=== PATIENT | female | born 1950 | race African-American/Black ===

== ENCOUNTER → 2016-10-28 | Outpatient (CLI) | payer MEDICARE | LOC: OD 17:11 | PROVIDERS: ATTEND Physician Assistant | DX: M25.532 Pain in left wrist (principal) ==

== ENCOUNTER → 2016-11-01 | Outpatient (CLI) | payer MEDICARE | LOC: OD 15:44 | PROVIDERS: ATTEND Physician Assistant | DX: M25.512 Pain in left shoulder (principal) ==

== ENCOUNTER → 2017-02-09 | Outpatient (CLI) | payer MEDICARE ==
--- NOTE | 2017-02-09 16:37 | RADIOLOGY REPORT (SQ) ---
EXAM DESCRIPTION: WRIST BILATERAL 3 VIEWS COMPLETED DATE/TIME: 02/09/2017 4:21 pm REASON FOR STUDY: PAIN IN RIGHT WRIST,PAIN IN LEFT WRIST M25.531 PAIN IN RIGHT WRIST M25.532 PAIN IN LEFT WRIST M25.541 PAIN IN JOINTS OF RIGHT HAND COMPARISON: None. NUMBER OF VIEWS: Three views. TECHNIQUE: AP, lateral, and oblique radiographic images acquired of the right and left wrist. LIMITATIONS: None. FINDINGS: MINERALIZATION: Normal. BONES: No acute fracture or dislocation. There is a cyst in the trapezium on the left SOFT TISSUES: No soft tissue swelling. No foreign body. OTHER: No other significant finding. IMPRESSION: No acute abnormality. There is is cyst in the left trapezium. TECHNICAL DOCUMENTATION: JOB ID: [id number] [employer]- All Rights Reserved
--- NOTE | 2017-02-09 16:41 | RADIOLOGY REPORT (SQ) ---
EXAM DESCRIPTION: HAND BILATERAL 3 VIEWS COMPLETED DATE/TIME: 02/09/2017 4:21 pm REASON FOR STUDY: PAIN IN RIGHT HAND,PAIN IN LEFT HAND M25.531 PAIN IN RIGHT WRIST M25.532 PAIN IN LEFT WRIST M25.541 PAIN IN JOINTS OF RIGHT HAND COMPARISON: None. EXAM PARAMETERS: NUMBER OF VIEWS: Three views right hand. Three views left hand. TECHNIQUE: AP, lateral and oblique radiographic images acquired of bilateral hands. LIMITATIONS: None. FINDINGS: RIGHT HAND: MINERALIZATION: Normal. BONES: No acute fracture or dislocation. No worrisome bone lesions. No significant osteophytes. JOINTS: There is mild juxta-articular osteopenia. Degenerative joint changes are present in the 2nd distal interphalangeal joint. Milder changes are present in the 1st proximal interphalangeal joint. SOFT TISSUES: No swelling. No calcifications. OTHER: No other significant finding. LEFT HAND: MINERALIZATION: Normal. BONES: No acute fracture or dislocation. No worrisome bone lesions. No significant osteophytes. JOINTS: There is mild juxta-articular osteopenia. Mild degenerative joint changes are seen in the 2n d and 3rd distal interphalangeal joints. SOFT TISSUES: No swelling. No calcifications. OTHER: No other significant finding. IMPRESSION: Degenerative joint changes as described. There is no acute abnormality. TECHNICAL DOCUMENTATION: JOB ID: [id number]- All Rights Reserved
== END ==
LOC: OD 15:56
PROVIDERS: ATTEND Physician Assistant
DX: M25.531 Pain in right wrist (principal); M25.532 Pain in left wrist; M25.541 Pain in joints of right hand; M25.542 Pain in joints of left hand

== ENCOUNTER → 2017-02-15 | Outpatient (CLI) | payer MEDICARE ==
--- NOTE | 2017-02-15 10:59 | RADIOLOGY REPORT (SQ) ---
EXAM DESCRIPTION: MRI RT UPPER JOINT WITHOUT COMPLETED DATE/TIME: 02/15/2017 9:00 am REASON FOR STUDY: RIGHT SHOULDER PAIN (M25.511) M25.511 PAIN IN RIGHT SHOULDER COMPARISON: None. TECHNIQUE: Right shoulder images acquired and stored on PACS. Multiplanar imaging to include fat sen sitive sequences such as T1, water sensitive sequences such as FST2/STIR, cartilage sensitive sequenc es such as FSPD/gradient-echo sequences. LIMITATIONS: None. FINDINGS: BONE MARROW AND CORTEX: No worrisome bone lesions or marrow replacement. No occult fractur es. JOINT OR BURSAL EFFUSION: No significant joint or bursal fluid. No suggestion of loose bodies. GLENO-HUMERAL ARTICULATION: Normal articulation. No subluxation. No cystic change. No osteophytes or cartilage loss. ACROMION AND AC JOINT: Type 2. Mild AC joint arthropathy. ROTATOR CUFF AND INTERVAL: Small rim rent tear of the supraspinatus. Intermediate signal along the b ursal surface. No full-thickness tear. No rotator interval tear. No rotator interval thickening to suggest adhesive capsulitis. LABRUM AND BICEPS LABRAL COMPLEX: Increased signal follows the contour of the superior glenoid most consistent with a normal variant. No definite labral tear is identified. Extra-articular biceps in tact. REMAINDER OF LABRUM AND IGHL : No gross tear or paralabral cyst formation. Labral evaluation is less than optimal without joint distention. No thickening of IGHL to suggest adhesive capsulitis. PERIARTICULAR AND ADJACENT SOFT TISSUES: No masses or abnormal nodes. OTHER: No other significant finding. IMPRESSION: Small rim rent tear and bursal surface perforation of the supraspinatus. No full-thickn ess tear. TECHNICAL DOCUMENTATION: JOB ID: [id number] [employer]- All Rights Reserved
== END ==
LOC: RAD 08:02
PROVIDERS: ATTEND Physician Assistant
DX: M25.511 Pain in right shoulder (principal)

== ENCOUNTER 2017-02-18 09:07 | Emergency (ER) | payer MEDICARE ==
[2017-02-18] MEDS ORDERED: HYDROCODONE/ACETAMINOPHEN 5-325 MG TABLET PO ONE (09:52)
--- NOTE | 2017-02-18 10:03 | ER Document Report ---
HPI - HPI Patient complains to provider of: left wrist pain Onset: Other - 02/06/2017 Onset/Duration: Worse Quality of pain: Sharp Pain Level: 5 Context: Patient reports she has had wrist pain since February 06. Patient denies any injury. Patient did see her primary doctor regarding this and had x-rays performed on 02/09/2017. Patient states that the x-ray showed arthritis and a cyst to her wrist area. Patient denies any fever. Patient complains of increased pain and swelling. Associated Symptoms: Other - Wrist pain. denies: Fever Exacerbated by: Movement Relieved by: Denies Similar symptoms previously: Yes Recently seen / treated by doctor: Yes - ROS ROS below otherwise negative: Yes Systems Reviewed and Negative: Yes All other systems reviewed and negative - CONSTITUTIONAL Constitutional: DENIES: Fever, Chills - NEURO Neurology: DENIES: Weakness - CARDIOVASCULAR Cardiovascular: DENIES: Chest pain - MUSCULOSKELETAL Musculoskeletal: REPORTS: Extremity pain, Swelling. DENIES: Back Pain - DERM Skin Color: Normal Past Medical History - General Information source: Patient - Social History Smoking Status: Never Smoker Chew tobacco use (# tins/day): No Frequency of alcohol use: None Drug Abuse: None Occupation: none Family History: Reviewed & Not Pertinent Patient has suicidal ideation: No Patient has homicidal ideation: No - Past Medical History Cardiac Medical History: Reports: Hx Coronary Artery Disease, Hx Hypertension Denies: Hx Heart Attack Pulmonary Medical History: Reports: Hx COPD - COPD, SARCOIDOSIS Denies: Hx Asthma, Hx Bronchitis, Hx Pneumonia, Hx Tuberculosis Neurological Medical History: Denies: Hx Cerebrovascular Accident, Hx Seizures Renal/ Medical History: Denies: Hx Peritoneal Dialysis GI Medical History: Reports: Hx Gastroesophageal Reflux Disease Musculoskeltal Medical History: Reports Hx Arthritis, Denies Hx Gout Past Surgical History: Reports: Hx Section - 3XS, Hx Cholecystectomy, Hx Mastectomy - BILATERAL, Hx Tonsillectomy. Denies: Hx Pacemaker - Immunizations Hx Diphtheria, Pertussis, Tetanus Vaccination: No Hx Pneumococcal Vaccination: 06/28/07 Vertical Provider Document - CONSTITUTIONAL Agree With Documented VS: Yes Exam Limitations: No Limitations General Appearance: WD/WN, No Apparent Distress - INFECTION CONTROL TRAVEL OUTSIDE OF THE [place] IN LAST 30 DAYS: No - HEENT HEENT: Atraumatic, Normocephalic - NECK Neck: Normal Inspection, Supple - RESPIRATORY Respiratory: Breath Sounds Normal, No Respiratory Distress O2 Sat by Pulse Oximetry: 97 - CARDIOVASCULAR Cardiovascular: Regular Rate, Regular Rhythm, No Murmur Pulses: Normal: Radial - MUSCULOSKELETAL/EXTREMETIES Musculoskeletal/Extremeties: Tender - left wrist tenderness increases with flexion or extension. Patient only comfortable in the neutral position. Patient with 2+ edema and faint erythema overlying the dorsal left wrist, Edema. negative: Eccymosis - NEURO Level of Consciousness: Awake, Alert, Appropriate Motor/Sensory: No Motor Deficit - DERM Integumentary: Warm, Dry Course - Re-evaluation Re-evalutation: 02/18/17 10:[address] laguerre regarding pt presentation and diagnostic evaluation 02/18/17 11:[address] laguerre, reviewed pt's diagnostic tests and ultrasound report, advises placing patient in a thumb spica splint adding nsaid and having pt return tomorrow for a recheck, sooner for any new or worsening symptoms. Exit patient's mild erythema is more inflammatory versus infective, although advises that a course of antibiotics could be added as well just as a precaution. Agrees with plan for clindamycin given pt's hx of drug allergies. 02/18/17 12:00 discussed Worsening signs or symptoms that patient should return immediately for. Patient verbalized understanding and agrees with plan of care. 02/18/17 12:06 suspect pt with inflammatory tenosynovitis with her known hx of arthritis. Pt states pain improved after placement of splint - Vital Signs Vital signs: Temp Pulse Resp BP Pulse Ox 98.4 F 66 15 191/90 H 97 02/18/17 09:10 02/18/17 09:10 02/18/17 09:10 02/18/17 09:10 02/18/17 09:10 - Laboratory Result Diagrams: 02/18/17 10:04 - Diagnostic Test Radiology reviewed: Reports reviewed - reviewed pt outpt x ray report of wrist from 02/09/17 Procedures - Immobilization Left Wrist Pre-Proc Neuro Vasc Exam: Normal Immobilizer type: Thumb spica Performed by: PCT Post-Proc Neuro Vasc Exam: Normal Alignment checked and good: Yes Discharge - Discharge Clinical Impression: Wrist pain, left, Tenosynovitis, Hx of essential hypertension Condition: Stable Disposition: HOME, SELF-CARE Instructions: Tendonitis ([facility]), Clindamycin ([facility]), Anti-Inflammatory Medication ([facility]), Temporary Splint ([facility]) Additional Instructions: return tomorrow for a recheck, return sooner for any new or worsening symptoms follow up with your doctor on Tuesday for recheck. Your blood pressure was elevated today, they may need to adjust her medications. Follow up with orthopedic doctor for further evaluation, call Tuesday for an appointment take tramadol or hydrocodone, do not take both medications together Prescriptions: Clindamycin HCl [Cleocin Hcl] 300 mg PO QID #28 capsule Hydrocodone/Acetaminophen [[place] 5-325 Tablet] 1 each PO Q6 PRN #20 tablet PRN Reason: Naproxen [Naprosyn 250 Nmg Tablet] 1 tab PO BID #14 tablet Referrals: BACILIO GOYAL MD [Primary Care Provider] - 02/21/17 [facility] [Provider Group] - 02/21/17
[2017-02-18 10:17] LABS: ABSOLUTE EOSINOPHILS # (AUTO) 0.1 10^3/uL (0.0-0.6); ABSOLUTE LYMPHOCYTES (AUTO) 2.2 10^3/uL (0.5-4.7); ABSOLUTE MONOCYTES (AUTO) 0.6 10^3/uL (0.1-1.4); ABSOLUTE NEUT (AUTO) 6.4 10^3/uL (1.7-8.2); BASOPHILS % (AUTO) 0.3 % (0-2); EOSINOPHILS % (AUTO) 1.3 % (0-6); HEMATOCRIT 37.1 % (36.0-47.0); HEMOGLOBIN 12.4 g/dL (12.0-15.5); HGB HCT DIFFERENCE 0.1; LYMPHOCYTES % (AUTO) 23.6 % (13-45); MEAN CORPUSCULAR HEMOGLOBIN 31.3 pg (27.0-33.4); MEAN CORPUSCULAR HGB CONC 33.5 g/dL (32.0-36.0); MEAN CORPUSCULAR VOLUME 93 fl (80-97); MONOCYTES % (AUTO) 6.6 % (3-13); RED BLOOD COUNT 3.97 10^6/uL (3.72-5.28); RED CELL DISTRIBUTION WIDTH 13.3 % (11.5-14.0); SEGMENTED NEUTROPHILS % (AUTO) 68.2 % (42-78); WHITE BLOOD COUNT 9.3 10^3/uL (4.0-10.5)
[2017-02-18 10:40] LABS: C-REACTIVE PROTEIN 17.4 mg/L (<10.0); URIC ACID 3.4 mg/dL (2.5-7.5)
[2017-02-18 10:57] LABS: ERYTHROCYTE SEDIMENTATION RATE 37 mm/hr (0-30)
--- NOTE | 2017-02-18 11:28 | RADIOLOGY REPORT (SQ) ---
EXAM DESCRIPTION: U/S EXTREMITY NONVASCULAR LTD COMPLETED DATE/TIME: 02/18/2017 10:50 am REASON FOR STUDY: left wrist pain/swelling, redness COMPARISON: None. TECHNIQUE: Dynamic and static grayscale images acquired of the localized site of clinical concern an d recorded on PACS. Additional selected color Doppler and spectral images recorded. SITE OF CONCERN: Left wrist LIMITATIONS: None. FINDINGS: SKIN AND SUBCUTANEOUS TISSUES: Fluid surrounding the 1st extensor tendon compartment. DEEP SOFT TISSUES/MUSCLES: No masses. No fluid collections. No edema. VASCULAR: No increased or decreased vascularity. No occlusions. OTHER: No other significant finding. IMPRESSION: Tenosynovitis 1st extensor tendon compartment. TECHNICAL DOCUMENTATION: JOB ID: [id number] [employer]- All Rights Reserved
[2017-02-18] MEDS ORDERED: NAPROXEN 250 MG TABLET PO ONE (11:57)
[2017-02-18] MEDS ORDERED: CLINDAMYCIN HCL 150 MG CAPSULE PO ONE (11:57)
[2017-02-18 12:38] VITALS: BP 170/73
== END 2017-02-18 12:40 | disposition home or self-care (01) ==
LOC: ER 09:07
PROC: 2W3DX1Z Immobilization of Left Lower Arm using Splint (ICD-10-PCS; principal; 2017-02-18)
DX: M65.9 Synovitis and tenosynovitis, unspecified (principal); M25.532 Pain in left wrist; M79.89 Other specified soft tissue disorders; I10 Essential (primary) hypertension
CPT/HCPCS: 99284; 36415; 87040; 84550; 85025; 85652; 86140; 76882; 29125; A9270 ×3

== ENCOUNTER 2017-02-19 09:12 | Emergency (ER) | payer MEDICARE ==
[2017-02-19] MEDS ORDERED: HYDROCODONE/ACETAMINOPHEN 5-325 MG TABLET PO ONE (09:39)
[2017-02-19] MEDS ORDERED: NAPROXEN 250 MG TABLET PO ONE (10:15)
[2017-02-19] MEDS ORDERED: PREDNISONE 20 MG TABLET PO ONE (10:15)
--- NOTE | 2017-02-19 10:19 | ER Document Report ---
HPI - HPI Patient complains to provider of: Recheck of left wrist Onset: Other - 4 days Onset/Duration: Better Quality of pain: Achy, Sharp Pain Level: 4 Context: Patient is here for a recheck of left wrist pain for which she was seen yesterday. Patient was diagnosed with arthritis as well as extensor tenosynovitis. Patient states that pain is modestly improved. Patient denies any fever. Patient denies any increase in swelling. Pt denies any history of trauma or puncture wound. Associated Symptoms: Other - left wrist Pain. denies: Fever Exacerbated by: Movement Relieved by: Denies Similar symptoms previously: No Recently seen / treated by doctor: Yes - ROS ROS below otherwise negative: Yes Systems Reviewed and Negative: Yes All other systems reviewed and negative - CONSTITUTIONAL Constitutional: DENIES: Fever, Chills - CARDIOVASCULAR Cardiovascular: DENIES: Chest pain - RESPIRATORY Respiratory: DENIES: Coughing - MUSCULOSKELETAL Musculoskeletal: REPORTS: Extremity pain - left wrist, Swelling - DERM Skin Color: Normal Skin Problems: None Past Medical History - General Information source: Patient - Social History Smoking Status: Never Smoker Frequency of alcohol use: None Drug Abuse: None Family History: Reviewed & Not Pertinent Patient has suicidal ideation: No Patient has homicidal ideation: No - Past Medical History Cardiac Medical History: Reports: Hx Coronary Artery Disease, Hx Hypertension Denies: Hx Heart Attack Pulmonary Medical History: Reports: Hx COPD - COPD, SARCOIDOSIS Denies: Hx Asthma, Hx Bronchitis, Hx Pneumonia, Hx Tuberculosis Neurological Medical History: Denies: Hx Cerebrovascular Accident, Hx Seizures Renal/ Medical History: Denies: Hx Peritoneal Dialysis GI Medical History: Reports: Hx Gastroesophageal Reflux Disease Musculoskeltal Medical History: Reports Hx Arthritis, Denies Hx Gout Past Surgical History: Reports: Hx Section - 3XS, Hx Cholecystectomy, Hx Mastectomy - BILATERAL, Hx Tonsillectomy. Denies: Hx Pacemaker - Immunizations Hx Diphtheria, Pertussis, Tetanus Vaccination: No Hx Pneumococcal Vaccination: 06/28/07 Vertical Provider Document - CONSTITUTIONAL Agree With Documented VS: Yes Exam Limitations: No Limitations General Appearance: WD/WN, No Apparent Distress - INFECTION CONTROL TRAVEL OUTSIDE OF THE [place] IN LAST 30 DAYS: No - HEENT HEENT: Atraumatic, Normocephalic - NECK Neck: Normal Inspection, Supple - RESPIRATORY Respiratory: Breath Sounds Normal, No Respiratory Distress O2 Sat by Pulse Oximetry: 97 - CARDIOVASCULAR Cardiovascular: Regular Rate, Regular Rhythm Pulses: Normal: Radial - MUSCULOSKELETAL/EXTREMETIES Musculoskeletal/Extremeties: Tender - Pt with generalized left wrist tenderness with 1+ edema. Faint erythema overlying the dorsal aspect of right wrist overlying trapezium and proximal 2,3 rd metacarpals. Pt with decreased swelling as compared to prior visit yesterday, erythema modestly improved. Normal skin temperature. Pain markedly increases with extension of wrist, patient with increased range of motion with left wrist flexion as compared to extension. no erythema noted to the volar aspect of the left wrist. - NEURO Level of Consciousness: Awake, Alert, Appropriate Motor/Sensory: No Motor Deficit, No Sensory Deficit - DERM Integumentary: Warm, Dry Course - Re-evaluation Re-evalutation: 02/19/17 10:[address] Lazaro who recommends consultation with orthopedic doctor. Consulted with Dr. Farr at [facility], as patient's laboratory tests, x-ray findings as well as ultrasound report. Dr. Farr agrees with plan for anti-inflammatory as well as immobilization. Does recommend placing patient on a course of steroids. Advises having patient keep appointment with on Tuesday for recheck. 02/19/17 10:19 The patient has been informed that they may have pre-hypertension or hypertension based on a blood pressure reading in the emergency department. I recommend that patient call the primary care provider listed on their discharge instructions or a physician of their choice by this week to arrange follow-up for further evaluation of possible pre-hypertension her hypertension. - Vital Signs Vital signs: Temp Pulse Resp BP Pulse Ox 98.3 F 65 16 190/88 H 97 02/19/17 09:21 02/19/17 09:21 02/19/17 09:21 02/19/17 09:21 02/19/17 09:21 - Laboratory Laboratory results interpreted by me: 02/19/17 10:16 reviewed labs from previous ER visit - Diagnostic Test Radiology reviewed: Reports reviewed Procedures - Immobilization Left Wrist Pre-Proc Neuro Vasc Exam: Normal Immobilizer type: Thumb spica Performed by: PCT Post-Proc Neuro Vasc Exam: Normal Alignment checked and good: Yes Discharge - Discharge Clinical Impression: Tenosynovitis, Wrist pain, left, Wrist arthritis, Hx of essential hypertension Condition: Stable Disposition: HOME, SELF-CARE Instructions: Arthritis ([facility]), Steroid Medication, Anti-Inflammatory Medication ([facility]), Temporary Splint ([facility]) Additional Instructions: Follow-up with Jennifer at [facility] on Tuesday for a recheck return for worsening symptoms, increased pain, fever, or any other concerns. Continue to take your anti-inflammatory medication and pain medication as prescribed. Your blood pressure was elevated today, recheck with your primary doctor on Tuesday for a recheck to have this reevaluated Prescriptions: Prednisone [Deltasone 20 mg Tablet] 2 tab PO DAILY 4 Days Forms: Elevated Blood Pressure Referrals: BACILIO GOYAL MD [Primary Care Provider] - 02/21/17 [facility] [Provider Group] - 02/21/17
[2017-02-19 10:33] VITALS: BP 174/86
== END 2017-02-19 10:33 | disposition home or self-care (01) ==
LOC: ER 09:12
DX: M25.532 Pain in left wrist (principal); M65.9 Synovitis and tenosynovitis, unspecified; M19.032 Primary osteoarthritis, left wrist; I10 Essential (primary) hypertension
CPT/HCPCS: 99283; A9270 ×3; J7512

== ENCOUNTER → 2017-11-04 | Outpatient (CLI) | payer MEDICARE ==
--- NOTE | 2017-11-04 12:36 | RADIOLOGY REPORT (SQ) ---
EXAM DESCRIPTION: CHEST PA/LATERAL COMPLETED DATE/TIME: 11/04/2017 11:55 am REASON FOR STUDY: COUGH COMPARISON: 10/16/2015 EXAM PARAMETERS: NUMBER OF VIEWS: two views TECHNIQUE: Digital Frontal and Lateral radiographic views of the chest acquired. RADIATION DOSE: NA LIMITATIONS: none FINDINGS: LUNGS AND PLEURA: Chronic interstitial changes. Subtle increased density lateral to the r ight heart border. Nodular density substernal inferiorly seen on lateral view only. MEDIASTINUM AND HILAR STRUCTURES: No masses or contour abnormalities. HEART AND VASCULAR STRUCTURES: Stable heart size. BONES: No acute findings. HARDWARE: None in the chest. OTHER: No other significant finding. IMPRESSION: Atelectasis or early pneumonia in the middle lobe. Questionable inferior substernal nod ule. TECHNICAL DOCUMENTATION: JOB ID: [id number] [employer]- All Rights Reserved
== END ==
LOC: OD 11:42
PROVIDERS: ATTEND Family Medicine
DX: R05 Cough (principal)
CPT/HCPCS: 71046

== ENCOUNTER → 2017-11-11 | Outpatient (CLI) | payer MEDICARE ==
--- NOTE | 2017-11-11 13:01 | RADIOLOGY REPORT (SQ) ---
EXAM DESCRIPTION: CHEST PA/LATERAL COMPLETED DATE/TIME: 11/11/2017 12:46 pm REASON FOR STUDY: PNEUMONIA, UNSPECIFIED ORGANISM COMPARISON: Two-view chest 11/04/2017 CT chest 12/03/2015 EXAM PARAMETERS: NUMBER OF VIEWS: two views TECHNIQUE: Digital Frontal and Lateral radiographic views of the chest acquired. RADIATION DOSE: NA LIMITATIONS: none FINDINGS: LUNGS AND PLEURA: No opacities, masses or pneumothorax. No pleural effusion. MEDIASTINUM AND HILAR STRUCTURES: No masses or contour abnormalities. HEART AND VASCULAR STRUCTURES: Mild cardiomegaly BONES: Osteoporotic without thoracic compression deformity HARDWARE: None in the chest. OTHER: No other significant finding. IMPRESSION: No focal infiltrates. Mild cardiomegaly TECHNICAL DOCUMENTATION: JOB ID: [id number] [employer]- All Rights Reserved Reading location - IP/workstation name: [email or web address]
== END ==
LOC: OD 12:01
PROVIDERS: ATTEND Family Medicine
DX: J18.9 Pneumonia, unspecified organism (principal)
CPT/HCPCS: 71046

== ENCOUNTER → 2018-02-17 | Outpatient (CLI) | payer MEDICARE ==
[2018-02-21 13:38] LABS: CALCIUM RANDOM URINE 1.1 mg/dL (Not Estab.)
[2018-02-21 13:50] LABS: CALCIUM URINE 24HR 14.1 mg/24 hr (100.0-300.)
== END ==
LOC: LAB 12:36
PROVIDERS: ATTEND Internal Medicine Pulmonary Disease
DX: D86.9 Sarcoidosis, unspecified (principal)
CPT/HCPCS: 36415; 82310; 82340; 85652

== ENCOUNTER → 2018-05-11 | Outpatient (CLI) | payer MEDICARE ==
--- NOTE | 2018-05-11 10:43 | RADIOLOGY REPORT (SQ) ---
EXAM DESCRIPTION: MRI LT LOWER JOINT WITHOUT COMPLETED DATE/TIME: 05/11/2018 10:24 am REASON FOR STUDY: INTERNAL DERANGEMENT OF LEFT KNEE M23.92 UNSPECIFIED INTERNAL DERANGEMENT OF LEFT KNEE COMPARISON: None. TECHNIQUE: Leftknee images acquired and stored on PACS. Multiplanar images include fat sensitive se quences as T1, water sensitive sequences as FST2 or STIR, cartilage sensitive sequences as FSPD, and gradient echo sequences. LIMITATIONS: None. FINDINGS: JOINT AND BURSAE: No effusion. BONE CORTEX AND MARROW: No alteration of signal to suggest marrow replacement. No worrisome bone lesi ons. No occult fracture. ACL: Intact. No degeneration or ganglion cyst. PCL: Intact. MCL: Intact. No periligamentous edema or fluid. LCL: Intact. No periligamentous edema or fluid. MEDIAL MENISCUS: Increased signal posterior horn extending to the articular surface in the horizontal plane. LATERAL MENISCUS: Increased signal anterior horn without extension to the articular surface. MEDIAL COMPARTMENT: Cartilage thinning. No large osteophytes or subchondral edema. LATERAL COMPARTMENT: Cartilage thinning. Subchondral cyst formation tibial plateau. PATELLA: Cartilage thinning. Lateral tilting of the patella. Intact retinaculum. EXTENSOR MECHANISM: Intact. Quadriceps and patella tendons normal. SOFT TISSUES: Subcutaneous edema anterior to the patellar tendon. No bursal fluid collection. OTHER: No other significant finding. IMPRESSION: 1. Horizontal tear posterior horn medial meniscus. 2. Chondromalacia. Subchondral cyst lateral tibial plateau. TECHNICAL DOCUMENTATION: JOB ID: [id number] [employer]- All Rights Reserved Reading location - IP/workstation name: [email or web address]
== END ==
LOC: RAD 09:33
PROVIDERS: ATTEND Physician Assistant
DX: M23.92 Unspecified internal derangement of left knee (principal)

== ENCOUNTER → 2018-05-26 | Outpatient (CLI) | payer MEDICARE ==
[2018-05-26 15:17] LABS: ABSOLUTE EOSINOPHILS # (AUTO) 0.1 10^3/uL (0.0-0.6); ABSOLUTE LYMPHOCYTES (AUTO) 2.5 10^3/uL (0.5-4.7); ABSOLUTE MONOCYTES (AUTO) 0.5 10^3/uL (0.1-1.4); ABSOLUTE NEUT (AUTO) 6.6 10^3/uL (1.7-8.2); BASOPHILS % (AUTO) 0.3 % (0-2); EOSINOPHILS % (AUTO) 1.4 % (0-6); HEMATOCRIT 34.7 % (36.0-47.0); HEMOGLOBIN 11.8 g/dL (12.0-15.5); LYMPHOCYTES % (AUTO) 25.3 % (13-45); MEAN CORPUSCULAR HEMOGLOBIN 32.2 pg (27.0-33.4); MEAN CORPUSCULAR HGB CONC 33.9 g/dL (32.0-36.0); MEAN CORPUSCULAR VOLUME 95 fl (80-97); MONOCYTES % (AUTO) 5.5 % (3-13); PLATELET COUNT 242 10^3/uL (150-450); RED BLOOD COUNT 3.66 10^6/uL (3.72-5.28); SEGMENTED NEUTROPHILS % (AUTO) 67.5 % (42-78); TOTAL CELLS COUNTED % (AUTO) 100 %; WHITE BLOOD COUNT 9.8 10^3/uL (4.0-10.5)
[2018-05-26 15:36] LABS: ALANINE AMINOTRANSFERASE 20 U/L (9-52); ALBUMIN 4.1 g/dL (3.5-5.0); ALKALINE PHOSPHATASE 60 U/L (38-126); ANION GAP 9 (5-19); ASPARTATE AMINO TRANSFERASE 16 U/L (14-36); BILIRUBIN,DIRECT 0.5 mg/dL (0.0-0.4); BILIRUBIN,TOTAL 0.6 mg/dL (0.2-1.3); BLOOD UREA NITROGEN 21 mg/dL (7-20); CALCIUM 10.2 mg/dL (8.4-10.2); CARBON DIOXIDE 30 mmol/L (22-30); CHLORIDE 102 mmol/L (98-107); GLUCOSE 104 mg/dL (75-110); POTASSIUM 3.8 mmol/L (3.6-5.0); SODIUM 141.4 mmol/L (137-145); TOTAL PROTEIN 6.7 g/dL (6.3-8.2)
--- NOTE | 2018-05-26 19:17 | EKG REPORT ---
SEVERITY:- ABNORMAL ECG - SINUS RHYTHM SINUS PAUSE/ARREST WITH ATRIAL ESCAPE RIGHT BUNDLE BRANCH BLOCK : Confirmed by: Landen Dave MD 26-May-2018 19:16:32
== END ==
LOC: OD 14:23
PROVIDERS: ATTEND Orthopaedic Surgery
DX: I10 Essential (primary) hypertension (principal); Z11.2 Encounter for screening for other bacterial diseases
CPT/HCPCS: 36415; 80053; 85025; 87070; 93005; 93010

== ENCOUNTER → 2018-12-22 | Outpatient (CLI) | payer MEDICARE ==
--- NOTE | 2018-12-22 11:45 | RADIOLOGY REPORT (SQ) ---
EXAM DESCRIPTION: HIPS BILATERAL COMPLETED DATE/TIME: 12/22/2018 11:23 am REASON FOR STUDY: PAIN IN RT/LT HIP M25.551 PAIN IN RIGHT HIP M25.552 PAIN IN LEFT HIP COMPARISON: None. NUMBER OF VIEWS: Two views TECHNIQUE: AP pelvis and additional frog-leg view of both hips. LIMITATIONS: None. FINDINGS: MINERALIZATION: Normal. HIPS: Mild joint space narrowing bilaterally. This is symmetric. No acute fracture or dislocation. PELVIS AND SACRUM: No acute fracture or dislocation. No worrisome bone lesions. PUBIS AND ISCHIUM: No acute fracture. LOWER LUMBAR SPINE: No significant findings as visualized. SOFT TISSUES: No findings. OTHER: No other significant finding. IMPRESSION: Mild symmetric degenerative changes in the hips. No acute findings. TECHNICAL DOCUMENTATION: JOB ID: [id number] [employer]- All Rights Reserved Reading location - IP/workstation name: [email or web address]
== END ==
LOC: OD 11:12
PROVIDERS: ATTEND Physician Assistant
DX: M25.551 Pain in right hip (principal); M25.552 Pain in left hip
CPT/HCPCS: 73522

== ENCOUNTER → 2019-04-10 | Outpatient (CLI) | payer MEDICARE, OTHER ==
--- NOTE | 2019-04-10 08:19 | RADIOLOGY REPORT (SQ) ---
EXAM DESCRIPTION: U/S RETROPERITON (RENAL/AORTA) COMPLETED DATE/TIME: 04/10/2019 7:48 am REASON FOR STUDY: CYST OF KIDNEY, ACQUIRED (N28.1) N28.1 CYST OF KIDNEY, ACQUIRED COMPARISON: None. TECHNIQUE: Dynamic and static grayscale images acquired of the kidneys and bladder and recorded on P ACS. Additional selected color Doppler and spectral images recorded. LIMITATIONS: None. FINDINGS: RIGHT KIDNEY: The right kidney measures 11.2 cm in length. Normal echogenicity. No so lid or suspicious masses. There is a small cyst measured at approximately 2 cm. No hydronephrosis. No calcifications. LEFT KIDNEY: The left kidney measures 10.2 cm in length. Normal echogenicity. No solid or suspic ious masses. No hydronephrosis. No calcifications. BLADDER: No masses. OTHER FINDINGS: No other significant finding. IMPRESSION: Small right renal cyst. No other significant findings. TECHNICAL DOCUMENTATION: JOB ID: [id number] [email or web address]- All Rights Reserved Reading location - IP/workstation name: [email or web address]
== END ==
LOC: RAD 07:32
PROVIDERS: ATTEND Physician Assistant
DX: N28.1 Cyst of kidney, acquired (principal)
CPT/HCPCS: 76770

== ENCOUNTER → 2019-07-13 | Outpatient (CLI) | payer MEDICARE, OTHER ==
[2019-07-14 12:36] LABS: CREATININE URINE 154.4 mg/dL (Not Estab.)
[2019-07-15 11:49] LABS: CALCIUM CREAT RATIO <5 mg/g creat (0-260); CALCIUM RANDOM URINE <0.8 mg/dL (Not Estab.)
== END ==
LOC: LAB 11:09
PROVIDERS: ATTEND Otolaryngology
DX: D86.9 Sarcoidosis, unspecified (principal)
CPT/HCPCS: 36415; 82310; 82340; 82570; 85652

== ENCOUNTER 2020-04-01 08:44 | Day surgery (SDC) | payer MEDICARE, OTHER ==
[~2020-04-01 08:44] MED LIST: BUPIVACAINE HCL 0.75% INJ/PF (7.5 MG/1 ML) 10 ML SDV OD PRN; CHONDR SU A NA/HYALUR INTRAOC KIT (SURGICARE) ONE; EPINEPHRINE INJ/PF 1 MG/1 ML AMPULE ONE; KETOROLAC TROMETHAMINE 0.45% 4 DROP/0.4 ML DROPERETTE OD PRN; LIDOCAINE 1% INJ-PF (10 MG/ML) 30 ML SDV ONE; LIDOCAINE 4% INJ/PF (40 MG/ML) 5 ML AMPUL OD PRN; MIDAZOLAM 2 MG/2 ML INJ ONE
[2020-04-01] MEDS: BESIFLOXACIN HCL 0.6% OPH SUSP 5 ML BOTTLE OD PRN ×4 (09:11→10:15)
[2020-04-01] MEDS: TETRACAINE HCL 0.5% OPH SOLN 4 ML OD PRN ×3 (09:11→09:45)
[2020-04-01] MEDS: TROPICAMIDE 1% OPH SOLN 15 ML OD PRN ×3 (09:11→09:35)
[2020-04-01] MEDS: CYCLOPENTOLATE 0.2%/PHENYLEPHRINE 1% OPH SOLN 2 ML OD PRN ×3 (09:11→09:35)
[2020-04-01] MEDS: DORZOLAMIDE HCL 2%/TIMOLOL MALEAT 0.5% OPH SOLN 10 ML OD PRN ×2 (10:15)
[2020-04-01] MEDS ORDERED: LIDOCAINE 1%/PHENYLEPHRINE 1.5% 1 ML VIAL ONE (10:21)
--- NOTE | 2020-04-01 13:51 | Operative Report ---
Operative Report-[facility] Operative Report: DATE OF SURGERY: 04/01/2020 PREOPERATIVE DIAGNOSIS: CATARACT, RIGHT EYE. POSTOPERATIVE DIAGNOSIS: CATARACT,RIGHT EYE. PROCEDURE PERFORMED: PHACOEMULSIFICATION WITH TORIC POSTERIOR CHAMBER INTRAOCULAR LENS, RIGHT EYE. Intraocular Lens Model : MX 60 T200 25.0 Total Phaco Time: 5.40 CDE SURGEON: EDITH ASENCIO MD ANESTHESIA: TOPICAL WITH MAC. INDICATIONS FOR SURGERY: Difficulty with night driving PROCEDURE: The patient was brought to the Operating Room and placed in a seated position. a lid speculum was placed in the eye. the 0.180, and 270 degree axis of the cornea was marked with a toric marker. the patien was place in a reclining position. Following tetracaine drops, topical anesthesia was administered. This consisted of instrument wipe pledgets soaked in a solution of 4% Xylocaine mixed with 0.75% Marcaine in a 1:2 ratio. A 2 x 1 cm pledget was placed in the superior fornix. A 1 x 1 cm pledget was placed in the inferior fornix. The eye was patched shut for 5 minutes. The patch was removed. The eye was sterilely prepped and draped in the usual manner. Lid speculum was placed in the eye. The pledgets were removed. 4-0 black silk sutures were placed around the superior and the inferior rectus muscles to be used as traction. A conjunctival peritomy was made at the 10 o'clock position. Hemostasis was obtained with bipolar cautery. A posterior limbal groove was created using a crescent knife and dissected anteriorly towards the cornea. A sharp point blade was used to create a paracentesis site at the 2 o'clock position. 0.2 cc non preserved Lidocaine was injected into the anterior chamber. A 2.4 mm keratome was used to enter the anterior chamber through the groove. Viscoelastic was injected into the anteriorchamber. An anterior capsulotomy was performed using Utrata forceps in acapsulorrhexis fashion. Hydrodissection and hydrodelineation were performed. Phacoemulsification was performed in [id number] technique. Following this, the I/A unit was used to remove residual cortex. Viscoelastic was injected into the capsular bag. The Intraocular lens was placed in the capsular bag. The 123 degree axis of the eye was marked using a toric marker and the previously marked sites as reference. The lens was centered at this axis. The I/A unit was used to remove residual viscoelastic. The wound was seen to be watertight under high and low pressure, and no sutures were placed. The intraocular lens was well centered. The pressure was adjusted in the eye to normal pressure. The 4-0 black silk sutures and lid speculum were removed. The eye was shielded after Besivance and Cosopt drops were placed. The patient tolerated the procedure well and was sent to the Recovery Room in good condition.
== END 2020-04-01 10:50 | disposition home or self-care (01) ==
LOC: SC 08:44
PROVIDERS: ATTEND Ophthalmology
DX: H25.13 Age-related nuclear cataract, bilateral (principal); H35.363 Drusen (degenerative) of macula, bilateral; D86.0 Sarcoidosis of lung; H43.813 Vitreous degeneration, bilateral; D23.122 Other benign neoplasm of skin of left lower eyelid, including canthus; D23.112 Other benign neoplasm of skin of right lower eyelid, including canthus; H04.123 Dry eye syndrome of bilateral lacrimal glands; H52.4 Presbyopia; I10 Essential (primary) hypertension; J44.9 Chronic obstructive pulmonary disease, unspecified; Z87.891 Personal history of nicotine dependence; Z85.3 Personal history of malignant neoplasm of breast; M79.7 Fibromyalgia; R53.82 Chronic fatigue, unspecified; Z87.09 Personal history of other diseases of the respiratory system; Z88.2 Allergy status to sulfonamides; Z88.1 Allergy status to other antibiotic agents; Z91.041 Radiographic dye allergy status; Z79.899 Other long term (current) drug therapy; I49.9 Cardiac arrhythmia, unspecified
CPT/HCPCS: 66984; J2250; J3490 ×5; J0171; 142

== ENCOUNTER 2020-04-24 09:44 | Day surgery (SDC) | payer OTHER ==
[~2020-04-24 09:44] MED LIST changes: +BESIFLOXACIN HCL 0.6% OPH SUSP 5 ML BOTTLE OS PRN; -BUPIVACAINE HCL 0.75% INJ/PF (7.5 MG/1 ML) 10 ML SDV OD PRN; +BUPIVACAINE HCL 0.75% INJ/PF (7.5 MG/1 ML) 10 ML SDV OS PRN; +CYCLOPENTOLATE 0.2%/PHENYLEPHRINE 1% OPH SOLN 2 ML OS PRN; +DORZOLAMIDE HCL 2%/TIMOLOL MALEAT 0.5% OPH SOLN 10 ML OS PRN; -KETOROLAC TROMETHAMINE 0.45% 4 DROP/0.4 ML DROPERETTE OD PRN; +KETOROLAC TROMETHAMINE 0.45% 4 DROP/0.4 ML DROPERETTE OS PRN; +LIDOCAINE 1%/PHENYLEPHRINE 1.5% 0.8 ML SYRINGE ONE; -LIDOCAINE 4% INJ/PF (40 MG/ML) 5 ML AMPUL OD PRN; +LIDOCAINE 4% INJ/PF (40 MG/ML) 5 ML AMPUL OS PRN; -MIDAZOLAM 2 MG/2 ML INJ ONE; +TETRACAINE HCL 0.5% OPH SOLN 4 ML OS PRN; +TROPICAMIDE 1% OPH SOLN 15 ML OS PRN
[2020-04-24] MEDS: BESIFLOXACIN HCL 0.6% OPH SUSP 5 ML BOTTLE OS PRN ×4 (10:14→11:32)
[2020-04-24] MEDS: CYCLOPENTOLATE 0.2%/PHENYLEPHRINE 1% OPH SOLN 2 ML OS PRN ×3 (10:14→10:33)
[2020-04-24] MEDS: TETRACAINE HCL 0.5% OPH SOLN 4 ML OS PRN ×2 (10:14→10:49)
[2020-04-24] MEDS: TROPICAMIDE 1% OPH SOLN 15 ML OS PRN ×3 (10:14→10:33)
[2020-04-24] MEDS ORDERED: MIDAZOLAM 2 MG/2 ML INJ ONE (11:05)
[2020-04-24] MEDS ORDERED: FENTANYL CITRATE INJ/PF 100 MCG/2 ML AMPUL ONE (11:06)
[2020-04-24] MEDS: DORZOLAMIDE HCL 2%/TIMOLOL MALEAT 0.5% OPH SOLN 10 ML OS PRN ×2 (11:32)
--- NOTE | 2020-04-24 12:22 | Operative Report ---
Operative Report-[facility] Operative Report: DATE OF SURGERY: 04/24/2020 PREOPERATIVE DIAGNOSIS: CATARACT, LEFT EYE. POSTOPERATIVE DIAGNOSIS: CATARACT, LEFT EYE. PROCEDURE PERFORMED: PHACOEMULSIFICATION WITH TORIC POSTERIOR CHAMBER INTRAOCULAR LENS, LEFT EYE. Intraocular Lens Model : MX 60 ET 275 24.5 Total Phaco Time: 53 seconds SURGEON: EDITH ASENCIO MD ANESTHESIA: TOPICAL WITH MAC. INDICATIONS FOR SURGERY: Difficulty with night driving PROCEDURE: The patient was brought to the Operating Room and placed in a seated position. a lid speculum was placed in the eye. the 0.180, and 270 degree axis of the cornea was marked with a toric marker. the patien was place in a reclining position. Following tetracaine drops, topical anesthesia was administered. This consisted of instrument wipe pledgets soaked in a solution of 4% Xylocaine mixed with 0.75% Marcaine in a 1:2 ratio. A 2 x 1 cm pledget was placed in the superior fornix. A 1 x 1 cm pledget was placed in the inferior fornix. The eye was patched shut for 5 minutes. The patch was removed. The eye was sterilely prepped and draped in the usual manner. Lid speculum was placed in the eye. The pledgets were removed. 4-0 black silk sutures were placed around the superior and the inferior rectus muscles to be used as traction. A conjunctival peritomy was made at the 10 o'clock position. Hemostasis was obtained with bipolar cautery. A posterior limbal groove was created using a crescent knife and dissected anteriorly towards the cornea. A sharp point blade was used to create a par acentesis site at the 2 o'clock position. 0.2 cc non preserved Lidocaine was injected into the anterior chamber. A 2.4 mm keratome was used to enter the anterior chamber through the groove. Viscoelastic was injected into the anteriorchamber. An anterior capsulotomy was performed using Utrata forceps in acapsulorrhexis fashion. Hydrodissection and hydrodelineation were performed. Phacoemulsification was performed in [id number] technique. Following this, the I/A unit was used to remove residual cortex. Viscoelastic was injected into the capsular bag. The Intraocular lens was placed in the capsular bag. The 72 degree axis of the eye was marked using a toric marker and the previously marked sites as reference. The lens was centered at this axis. The I/A unit was used to remove residual viscoelastic. The wound was seen to be watertight under high and low pressure, and no sutures were placed. The intraocular lens was well centered. The pressure was adjusted in the eye to normal pressure. The 4-0 black silk sutures and lid speculum were removed. The eye was shielded after Besivance and Cosopt drops were placed. The patient tolerated the procedure well and was sent to the Recovery Room in good condition.
== END 2020-04-24 12:08 ==
LOC: SC 09:44
PROVIDERS: ATTEND Ophthalmology
DX: H25.13 Age-related nuclear cataract, bilateral (principal); H35.363 Drusen (degenerative) of macula, bilateral; D86.0 Sarcoidosis of lung; H43.813 Vitreous degeneration, bilateral; D23.122 Other benign neoplasm of skin of left lower eyelid, including canthus; D23.112 Other benign neoplasm of skin of right lower eyelid, including canthus; H04.123 Dry eye syndrome of bilateral lacrimal glands; H52.4 Presbyopia; I10 Essential (primary) hypertension; J44.9 Chronic obstructive pulmonary disease, unspecified; M79.7 Fibromyalgia; R53.82 Chronic fatigue, unspecified; D86.9 Sarcoidosis, unspecified; G47.33 Obstructive sleep apnea (adult) (pediatric); I49.9 Cardiac arrhythmia, unspecified; K21.9 Gastro-esophageal reflux disease without esophagitis; Z88.5 Allergy status to narcotic agent; Z88.1 Allergy status to other antibiotic agents; Z91.041 Radiographic dye allergy status; Z79.899 Other long term (current) drug therapy; Z87.891 Personal history of nicotine dependence; Z88.2 Allergy status to sulfonamides; Z85.3 Personal history of malignant neoplasm of breast
CPT/HCPCS: 66984; 00142; V2787; J2250; J3490 ×5; J0171; J3010; 142

== ENCOUNTER → 2020-09-15 | Outpatient (CLI) | payer MEDICARE | LOC: OD 14:32 | PROVIDERS: ATTEND Otolaryngology | DX: J30.9 Allergic rhinitis, unspecified (principal) | CPT/HCPCS: 36415; 82785; 86003 ==